=== PATIENT | male | born 1940 | race Caucasian/White ===

== ENCOUNTER 2019-10-26 13:58 | Inpatient (IN) ==
[2019-10-26] MEDS ORDERED: SODIUM CHLORIDE 0.9% 1,000 ML IV STA (14:14)
[2019-10-26] MEDS ORDERED: AZITHROMYCIN INJ 500 MG in SODIUM CHLORIDE 0.9% 250 ML IV STA (14:15)
[2019-10-26 14:35] LABS: Basophils # 0.1 10*3/uL (0.0-0.2); Basophils % 0.4 % (0.0-0.8); Hematocrit 46.1 VOL% (42.0-52.0); Hemoglobin 14.7 GM/DL (14.0-18.0); Immature Granulocytes % 2.1 %; Immature Granulocytes Absolute 0.26 #; Lymphocytes # 0.6 10*3/uL (1.4-4.0); Lymphocytes % 4.7 % (21.2-54.2); Mean Corpuscular HGB Conc 31.9 GM/DL (32-36); Mean Corpuscular Volume 92.8 FL (87-102); Mean Platelet Volume 11.5 FL (9.6-12.0); Monocytes % 2.7 % (1.7-12.7); Neutrophils % 90.1 % (38.7-73.9); Platelet Count 294 T/CUMM (130-400); Red Blood Count 4.97 MC/CUMM (3.8-5.5); Red Cell Distribution Width 15.7 % (9.3-17.3); White Blood Count 12.2 T/CUMM (4-12)
[2019-10-26 14:45] LABS: INR 1.3; PT Patient Result 13.5 SECS (9.8-11.9)
[2019-10-26 14:46] LABS: Apearance,Urine CLOUDY (Clear); Bacteria,Urine Moderate /HPF (Few); Bilirubin,Urine Negative (Negative); Blood, Urine Small mg/dL (Negative); Glucose,Urine (UA) 50 mg/dL (Negative); Hyaline Casts,Urine 158 /LPF (0-3); Ketones,Urine Negative (Negative); Mucus,Urine Occasional /LPF (Occasional); Nitrite,Urine Negative (Negative); Protein,Urine 100 MG/DL; RBC,Urine 46 /HPF (0-4); Urine Color Amber (Yellow); Urine Specific Gravity 1.018 (1.001-1.035); Urine Urobilinogen < 2.0 EU/DL (0.2-1.0); WBC,Urine 211 /HPF (0-6)
[2019-10-26 14:55] LABS: Alanine Aminotransferase 18 U/L (16-61); Albumin 2.4 G/DL (3.4-5.0); Alkaline Phosphatase 88 U/L (45-117); Aspartate Amino Transferase 51 U/L (0-37); Blood Urea Nitrogen 117 MG/DL (7-18); Calcium 8.7 MG/DL (8.5-10.1); Glucose 368 MG/DL (74-106); Osmolality,Calculated 337.8 MOS/KG (273-304); Total Protein 7.7 G/DL (6.4-8.3)
[2019-10-26 14:58] LABS: Band Neutrophils 6 % (0-10); Lymphocytes 4 % (20-55); Segmented Neutrophils 86 % (50-85); Total Cells Counted 100
[2019-10-26 14:59] LABS: Platelet Estimate Adequate
[2019-10-26 15:04] LABS: Estimated Glom Filtration Rate 0 ML/MIN; Troponin I 0.053 NG/ML (0.00-0.045)
[2019-10-26 15:15] LABS: ABG HCO3 16.4 MMOL/L (20-26); ABG Oxygen Saturation 88.3 % (95-100); ABG PH 7.328 (7.35-7.45); ABG PO2 61.9 MM HG (80-95)
[2019-10-26] MEDS ORDERED: SODIUM CHLORIDE 0.9% 500 ML IV STA (15:15)
[2019-10-26] MEDS ORDERED: INSULIN REGULAR 100 UNIT/ML IV STA (15:15)
[2019-10-26] MEDS ORDERED: ALBUTEROL 2.5 MG/3 ML NEB RESP TX PRN (15:25)
[2019-10-26] MEDS: LACTATED RINGERS 1,000 ML IV SCH (16:20)
[2019-10-26] MEDS ORDERED: LACTATED RINGERS 500 ML IV ONE (16:35)
[2019-10-26] MEDS ORDERED: ENOXAPARIN 30 MG/0.3 ML SYRINGE SUBCUT SCH (21:00)
[2019-10-26] MEDS: DOCUSATE SODIUM 100 MG CAPSULE PO SCH (21:45)
[2019-10-26] MEDS: DEXAMETHASONE 4 MG/1 ML VIAL IV SCH (21:46)
[2019-10-27] MEDS ORDERED: LACTATED RINGERS 1,000 ML IV ONE (00:06)
[2019-10-27] MEDS: LACTATED RINGERS 1,000 ML IV SCH ×2 (02:00→10:29)
[2019-10-27 05:04] LABS: ABG Base Excess -6.3 MMOL/L (-2.5-2.5); ABG HCO3 17.6 MMOL/L (20-26); ABG Oxygen Saturation 90.8 % (95-100); ABG PH 7.386 (7.35-7.45); ABG PO2 62.6 MM HG (80-95); ABG TCO2 18.5 MMOL/L (23-27); Allen Test Positive; Pt O2 Delivery Device Room Air
[2019-10-27 07:23] LABS: Basophils % 0.2 % (0.0-0.8); Hematocrit 36.1 VOL% (42.0-52.0); Hemoglobin 11.8 GM/DL (14.0-18.0); Immature Granulocytes % 1.2 %; Immature Granulocytes Absolute 0.11 #; Lymphocytes # 0.5 10*3/uL (1.4-4.0); Lymphocytes % 5.2 % (21.2-54.2); Mean Corpuscular HGB Conc 32.7 GM/DL (32-36); Mean Corpuscular Volume 91.6 FL (87-102); Mean Platelet Volume 11.4 FL (9.6-12.0); Monocytes % 2.9 % (1.7-12.7); Neutrophils % 90.5 % (38.7-73.9); Platelet Count 225 T/CUMM (130-400); Red Blood Count 3.94 MC/CUMM (3.8-5.5); Red Cell Distribution Width 15.7 % (9.3-17.3); White Blood Count 9.1 T/CUMM (4-12)
[2019-10-27 07:45] LABS: Albumin 1.8 G/DL (3.4-5.0); Bilirubin,Total 0.4 MG/DL (0.2-1.0); Calcium 8.3 MG/DL (8.5-10.1); Osmolality,Calculated 335.4 MOS/KG (273-304); Total Protein 5.5 G/DL (6.4-8.3)
[2019-10-27 07:54] LABS: Anisocytosis 1+; Band Neutrophils 3 % (0-10); Lymphocytes 7 % (20-55); Macrocytosis 1+; Platelet Estimate Normal; Polychromasia 1+; Segmented Neutrophils 87 % (50-85); Total Cells Counted 100
[2019-10-27] MEDS: AZITHROMYCIN 250 MG TABLET PO SCH (08:40)
[2019-10-27] MEDS: cefTRIAXone 1,000 MG in SYRINGE 1 EACH IV SCH (08:40)
[2019-10-27] MEDS: DEXAMETHASONE 4 MG/1 ML VIAL IV SCH (08:40)
[2019-10-27] MEDS: PANTOPRAZOLE 40 MG TABLET PO SCH (08:40)
[2019-10-27] MEDS: DOCUSATE SODIUM 100 MG CAPSULE PO SCH ×2 (08:40→21:30)
[2019-10-27 08:56] LABS: Sedimentation Rate-Westergren 93 MM/HR (0-20)
[2019-10-27] MEDS ORDERED: SODIUM CHLORIDE 0.45% 1,000 ML IV SCH (10:30)
[2019-10-27] MEDS: ALBUMIN 25% 25 GM in PREMIX 1 EACH IV SCH ×2 (11:00→18:04)
[2019-10-27] MEDS: ENOXAPARIN 30 MG/0.3 ML SYRINGE SUBCUT SCH (11:30)
[2019-10-27] MEDS: INSULIN LISPRO 100 UNIT/ML SUBCUT SCH ×2 (12:30→17:55)
[2019-10-27] MEDS: SODIUM CHLORIDE IV SCH (18:04)
[2019-10-27] MEDS: SODIUM BICARB IV SCH (18:04)
[2019-10-27] MEDS: [UNRECOGNIZED DRUG - OTHER] IV SCH (18:04)
[2019-10-28] MEDS: INSULIN LISPRO 100 UNIT/ML SUBCUT SCH ×4 (01:01→17:54)
[2019-10-28] MEDS: ENOXAPARIN 30 MG/0.3 ML SYRINGE SUBCUT SCH ×2 (01:02→12:11)
[2019-10-28] MEDS: ALBUMIN 25% 25 GM in PREMIX 1 EACH IV SCH (03:28)
[2019-10-28] MEDS: SODIUM BICARB IV SCH (04:30)
[2019-10-28] MEDS: [UNRECOGNIZED DRUG - OTHER] IV SCH (04:30)
[2019-10-28] MEDS: SODIUM CHLORIDE IV SCH (04:30)
[2019-10-28 04:57] LABS: ABG Base Excess -1.9 MMOL/L (-2.5-2.5); ABG HCO3 22.8 MMOL/L (20-26); ABG Oxygen Saturation 95.5 % (95-100); ABG PCO2 31.3 MM HG (35-48); ABG PH 7.439 (7.35-7.45); ABG PO2 75.4 MM HG (80-95); ABG TCO2 18.2 MMOL/L (23-27); Allen Test Positive; Pt O2 Delivery Device Other
[2019-10-28 06:05] LABS: Basophils % 0.4 % (0.0-0.8); Hematocrit 34.9 VOL% (42.0-52.0); Hemoglobin 10.9 GM/DL (14.0-18.0); Immature Granulocytes % 3.3 %; Immature Granulocytes Absolute 0.24 #; Lymphocytes # 0.6 10*3/uL (1.4-4.0); Lymphocytes % 7.5 % (21.2-54.2); Mean Corpuscular HGB Conc 31.2 GM/DL (32-36); Mean Corpuscular Volume 95.1 FL (87-102); Mean Platelet Volume 11.2 FL (9.6-12.0); Monocytes % 3.5 % (1.7-12.7); Neutrophils % 85.3 % (38.7-73.9); Platelet Count 200 T/CUMM (130-400); Red Blood Count 3.67 MC/CUMM (3.8-5.5); Red Cell Distribution Width 16.1 % (9.3-17.3); White Blood Count 7.3 T/CUMM (4-12)
[2019-10-28 06:30] LABS: Albumin 2.7 G/DL (3.4-5.0); Bilirubin,Total 0.5 MG/DL (0.2-1.0); Calcium 8.7 MG/DL (8.5-10.1); Osmolality,Calculated 327.6 MOS/KG (273-304); Total Protein 6.1 G/DL (6.4-8.3)
[2019-10-28] MEDS: AZITHROMYCIN 250 MG TABLET PO SCH (08:08)
[2019-10-28] MEDS: cefTRIAXone 1,000 MG in SYRINGE 1 EACH IV SCH (08:08)
[2019-10-28] MEDS: DEXAMETHASONE 4 MG/1 ML VIAL IV SCH (08:08)
[2019-10-28] MEDS: DOCUSATE SODIUM 100 MG CAPSULE PO SCH ×2 (08:08→23:18)
[2019-10-28] MEDS: PANTOPRAZOLE 40 MG TABLET PO SCH (08:10)
[2019-10-28 08:42] LABS: Band Neutrophils 9 % (0-10); Lymphocytes 12 % (20-55); Platelet Estimate Normal; Segmented Neutrophils 77 % (50-85); Total Cells Counted 100
[2019-10-28 08:43] LABS: Anisocytosis 1+; Burr Cells Few; Poikilocytosis 1+; Toxic Granulation 1+
[2019-10-28] MEDS: VANCOMYCIN INJ 1,000 MG in SODIUM CHLORIDE 0.9% 250 ML IV SCH (12:13)
[2019-10-28] MEDS: SODIUM BICARB INJ 50 MEQ in STERILE WATER INJ 1,000 ML IV SCH ×2 (13:04→14:40)
[2019-10-29] MEDS: ENOXAPARIN 30 MG/0.3 ML SYRINGE SUBCUT SCH ×2 (01:46→11:36)
[2019-10-29] MEDS: INSULIN LISPRO 100 UNIT/ML SUBCUT SCH ×4 (01:46→17:30)
[2019-10-29 04:49] LABS: ABG Base Excess -0.3 MMOL/L (-2.5-2.5); ABG HCO3 22.4 MMOL/L (20-26); ABG Oxygen Saturation 93.8 % (95-100); ABG PCO2 30.9 MM HG (35-48); ABG PH 7.479 (7.35-7.45); ABG PO2 69.2 MM HG (80-95); ABG TCO2 23.4 MMOL/L (23-27); Allen Test Positive; Pt O2 Delivery Device Other
[2019-10-29 06:17] LABS: Basophils % 0.4 % (0.0-0.8); Hematocrit 40.5 VOL% (42.0-52.0); Hemoglobin 12.7 GM/DL (14.0-18.0); Immature Granulocytes % 4.5 %; Immature Granulocytes Absolute 0.45 #; Lymphocytes # 0.5 10*3/uL (1.4-4.0); Lymphocytes % 5.1 % (21.2-54.2); Mean Corpuscular HGB Conc 31.4 GM/DL (32-36); Mean Platelet Volume 11.8 FL (9.6-12.0); Monocytes % 2.7 % (1.7-12.7); Neutrophils % 87.3 % (38.7-73.9); Platelet Count 151 T/CUMM (130-400); Red Blood Count 4.31 MC/CUMM (3.8-5.5); Red Cell Distribution Width 15.8 % (9.3-17.3)
[2019-10-29 06:44] LABS: Albumin 2.4 G/DL (3.4-5.0); Bilirubin,Total 0.6 MG/DL (0.2-1.0); Calcium 8.6 MG/DL (8.5-10.1); Osmolality,Calculated 323.4 MOS/KG (273-304)
[2019-10-29] MEDS: cefTRIAXone 1,000 MG in SYRINGE 1 EACH IV SCH (09:05)
[2019-10-29] MEDS: OMEPRAZOLE ODT 20 MG TABLET NG SCH (09:05)
[2019-10-29] MEDS: DOCUSATE SODIUM 100 MG/10 ML UDCUP NG SCH ×2 (09:05→22:14)
[2019-10-29] MEDS: AZITHROMYCIN 250 MG TABLET PO SCH (09:05)
[2019-10-29] MEDS: DEXAMETHASONE 4 MG/1 ML VIAL IV SCH (09:06)
[2019-10-29] MEDS: SODIUM BICARB INJ 50 MEQ in STERILE WATER INJ 1,000 ML IV SCH ×2 (10:14→12:55)
[2019-10-29] MEDS ORDERED: DEXTROSE 10% 250 ML BAG IV PRN (11:40)
[2019-10-29] MEDS ORDERED: GLUCAGON 1 MG VIAL IM PRN (11:40)
[2019-10-29] MEDS: VANCOMYCIN INJ 1,000 MG in SODIUM CHLORIDE 0.9% 250 ML IV SCH (11:43)
[2019-10-29] MEDS: SODIUM BICARBONATE 650 MG TABLET PO SCH (22:14)
[2019-10-30] MEDS: INSULIN LISPRO 100 UNIT/ML SUBCUT SCH ×4 (01:28→17:34)
[2019-10-30] MEDS: ENOXAPARIN 30 MG/0.3 ML SYRINGE SUBCUT SCH ×2 (01:28→12:26)
[2019-10-30 04:11] LABS: Basophils % 0.6 % (0.0-0.8); Hematocrit 40.3 VOL% (42.0-52.0); Hemoglobin 12.9 GM/DL (14.0-18.0); Immature Granulocytes % 5.1 %; Immature Granulocytes Absolute 0.36 #; Lymphocytes # 0.3 10*3/uL (1.4-4.0); Lymphocytes % 4.7 % (21.2-54.2); Mean Corpuscular Volume 90.4 FL (87-102); Mean Platelet Volume 11.2 FL (9.6-12.0); Monocytes % 2.3 % (1.7-12.7); Neutrophils % 87.3 % (38.7-73.9); Platelet Count 204 T/CUMM (130-400); Red Blood Count 4.46 MC/CUMM (3.8-5.5); Red Cell Distribution Width 15.4 % (9.3-17.3)
[2019-10-30 04:31] LABS: Calcium 8.2 MG/DL (8.5-10.1); Osmolality,Calculated 324.3 MOS/KG (273-304)
[2019-10-30 04:33] LABS: Albumin 2.3 G/DL (3.4-5.0); Bilirubin,Total 0.6 MG/DL (0.2-1.0); Calcium 8.1 MG/DL (8.5-10.1); Osmolality,Calculated 322.4 MOS/KG (273-304); Total Protein 5.7 G/DL (6.4-8.3)
[2019-10-30 04:42] LABS: ABG Base Excess 3.4 MMOL/L (-2.5-2.5); ABG HCO3 24.4 MMOL/L (20-26); ABG Oxygen Saturation 86.2 % (95-100); ABG PH 7.573 (7.35-7.45); ABG PO2 47.6 MM HG (80-95); ABG TCO2 25.2 MMOL/L (23-27); Allen Test Positive; Pt O2 Delivery Device Other
[2019-10-30 04:56] LABS: Band Neutrophils 1 % (0-10); Hypochromasia 1+; Lymphocytes 10 % (20-55); Promyelocytes 2 %; Segmented Neutrophils 84 % (50-85); Total Cells Counted 100
[2019-10-30 04:57] LABS: Macrocytosis 1+; Platelet Estimate Normal
[2019-10-30] MEDS: DOCUSATE SODIUM 100 MG/10 ML UDCUP NG SCH ×2 (08:12→20:56)
[2019-10-30] MEDS: SODIUM BICARBONATE 650 MG TABLET PO SCH (08:12)
[2019-10-30] MEDS: AZITHROMYCIN 250 MG TABLET PO SCH (08:12)
[2019-10-30] MEDS: cefTRIAXone 1,000 MG in SYRINGE 1 EACH IV SCH (08:12)
[2019-10-30] MEDS: OMEPRAZOLE ODT 20 MG TABLET NG SCH (08:12)
[2019-10-30] MEDS: DEXAMETHASONE 4 MG/1 ML VIAL IV SCH (08:20)
[2019-10-30] MEDS: ACETAMINOPHEN 325 MG/10.15 ML UDCUP PO PRN (09:00)
[2019-10-30] MEDS ORDERED: IBUPROFEN 400 MG TABLET PO PRN (10:11)
[2019-10-30] MEDS: DEXTROSE 5% 1,000 ML IV SCH (10:58)
[2019-10-30] MEDS: NYSTATIN 500,000 UNIT/5 ML UDCUP SWISH/SWAL SCH ×3 (12:26→20:57)
[2019-10-30] MEDS: VANCOMYCIN INJ 1,000 MG in SODIUM CHLORIDE 0.9% 250 ML IV SCH (12:42)
[2019-10-30] MEDS ORDERED: INSULIN GLARGINE 100 UNIT/ML SUBCUT SCH (21:00)
[2019-10-31] MEDS: INSULIN LISPRO 100 UNIT/ML SUBCUT SCH ×4 (00:17→17:34)
[2019-10-31] MEDS: ENOXAPARIN 30 MG/0.3 ML SYRINGE SUBCUT SCH ×2 (00:17→12:32)
[2019-10-31] MEDS: ACETAMINOPHEN 325 MG/10.15 ML UDCUP PO PRN (00:36)
[2019-10-31 04:30] LABS: ABG Base Excess 2.9 MMOL/L (-2.5-2.5); ABG HCO3 25.1 MMOL/L (20-26); ABG Oxygen Saturation 88.5 % (95-100); ABG PH 7.527 (7.35-7.45); ABG PO2 52.7 MM HG (80-95); ABG TCO2 26.1 MMOL/L (23-27); Allen Test Positive; Pt O2 Delivery Device Other
[2019-10-31 06:23] LABS: Calcium 7.9 MG/DL (8.5-10.1); Osmolality,Calculated 309.4 MOS/KG (273-304)
[2019-10-31 06:26] LABS: Basophils % 0.4 % (0.0-0.8); Eosinophils % 0.4 % (0.00-10.9); Hematocrit 37.7 VOL% (42.0-52.0); Immature Granulocytes % 5.2 %; Immature Granulocytes Absolute 0.41 #; Lymphocytes # 0.5 10*3/uL (1.4-4.0); Lymphocytes % 5.9 % (21.2-54.2); Mean Corpuscular HGB Conc 31.8 GM/DL (32-36); Mean Corpuscular Volume 91.7 FL (87-102); Mean Platelet Volume 11.9 FL (9.6-12.0); Monocytes % 1.5 % (1.7-12.7); Neutrophils % 86.6 % (38.7-73.9); Platelet Count 122 T/CUMM (130-400); Red Blood Count 4.11 MC/CUMM (3.8-5.5); Red Cell Distribution Width 15.3 % (9.3-17.3); White Blood Count 7.9 T/CUMM (4-12)
[2019-10-31 06:52] LABS: Hypochromasia 1+; Lymphocytes 4 % (20-55); Platelet Estimate Normal; Segmented Neutrophils 94 % (50-85); Total Cells Counted 100
[2019-10-31 06:53] LABS: Macrocytosis Slight
[2019-10-31] MEDS: cefTRIAXone 1,000 MG in SYRINGE 1 EACH IV SCH (08:09)
[2019-10-31] MEDS: NYSTATIN 500,000 UNIT/5 ML UDCUP SWISH/SWAL SCH ×4 (08:09→20:34)
[2019-10-31] MEDS: DOCUSATE SODIUM 100 MG/10 ML UDCUP NG SCH ×2 (08:09→20:31)
[2019-10-31] MEDS: DEXAMETHASONE 4 MG/1 ML VIAL IV SCH (08:09)
[2019-10-31] MEDS: OMEPRAZOLE ODT 20 MG TABLET NG SCH (08:10)
[2019-10-31] MEDS: DEXTROSE 5% 1,000 ML IV SCH (09:29)
[2019-10-31] MEDS ORDERED: SODIUM CHLORIDE 0.9% 1,000 ML IV PRN (10:41)
[2019-10-31] MEDS: VANCOMYCIN INJ 1,000 MG in SODIUM CHLORIDE 0.9% 250 ML IV SCH (14:21)
[2019-10-31] MEDS ORDERED: INSULIN GLARGINE 100 UNIT/ML SUBCUT SCH (21:00)
[2019-11-01] MEDS: INSULIN LISPRO 100 UNIT/ML SUBCUT SCH ×4 (00:19→17:52)
[2019-11-01] MEDS: ENOXAPARIN 30 MG/0.3 ML SYRINGE SUBCUT SCH ×2 (00:20→11:39)
[2019-11-01] MEDS: ACETAMINOPHEN 325 MG/10.15 ML UDCUP PO PRN (00:21)
[2019-11-01] MEDS: VANCOMYCIN INJ 1,000 MG in SODIUM CHLORIDE 0.9% 250 ML IV SCH ×2 (01:29→14:32)
[2019-11-01 03:53] LABS: Basophils % 0.2 % (0.0-0.8); Eosinophils # 0.1 10*3/uL (0.0-0.87); Eosinophils % 1.1 % (0.00-10.9); Hematocrit 35.3 VOL% (42.0-52.0); Hemoglobin 11.4 GM/DL (14.0-18.0); Immature Granulocytes % 4.2 %; Immature Granulocytes Absolute 0.42 #; Lymphocytes # 0.5 10*3/uL (1.4-4.0); Lymphocytes % 5.2 % (21.2-54.2); Mean Corpuscular HGB Conc 32.3 GM/DL (32-36); Mean Corpuscular Volume 91.5 FL (87-102); Mean Platelet Volume 12.5 FL (9.6-12.0); Monocytes % 1.7 % (1.7-12.7); Neutrophils % 87.6 % (38.7-73.9); Platelet Count 85 T/CUMM (130-400); Red Blood Count 3.86 MC/CUMM (3.8-5.5); Red Cell Distribution Width 15.1 % (9.3-17.3); White Blood Count 9.9 T/CUMM (4-12)
[2019-11-01 04:05] LABS: Calcium 7.6 MG/DL (8.5-10.1); Osmolality,Calculated 293.4 MOS/KG (273-304)
[2019-11-01 04:25] LABS: Platelet Estimate Decreased
[2019-11-01 04:26] LABS: Macrocytosis Slight
[2019-11-01] MEDS: cefTRIAXone 1,000 MG in SYRINGE 1 EACH IV SCH (07:45)
[2019-11-01] MEDS: DEXTROSE 5% 1,000 ML IV SCH (07:45)
[2019-11-01] MEDS: OMEPRAZOLE ODT 20 MG TABLET NG SCH (08:00)
[2019-11-01] MEDS: NYSTATIN 500,000 UNIT/5 ML UDCUP SWISH/SWAL SCH ×3 (08:00→16:59)
[2019-11-01] MEDS: DEXAMETHASONE 4 MG/1 ML VIAL IV SCH (08:00)
[2019-11-01] MEDS: DOCUSATE SODIUM 100 MG/10 ML UDCUP NG SCH (08:00)
[2019-11-01] MEDS ORDERED: LORazepam 2 MG/1 ML VIAL IV PRN (18:12)
[2019-11-01] MEDS ORDERED: MORPHINE 4 MG/1 ML VIAL IV PRN (18:12)
[2019-11-02 02:56] VITALS: BP 169/90
== END 2019-11-02 00:24 | disposition expired | DRG 871 ==
LOC: N.ED 13:58 → SUATTDRO 15:25 → N.EDINP 15:25 → N.CC 16:26 → N.2E 11-01 16:59
PROVIDERS: ADMIT Family Medicine; ATTEND Internal Medicine